=== PATIENT | male | born 1975 | race Caucasian/White ===

== ENCOUNTER 2020-07-22 13:10 | Emergency (ER) | payer OTHER, SELFPAY ==
[~2020-07-22] VITALS: Ht 160 cm; Wt 75.6 kg
[~2020-07-22 13:10] MED LIST: BACIPOW8 TOP; IBUP200C25 PO; KEFL500C17 PO; PERCOCET PO
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
[2020-07-22] MEDS ORDERED: NORC1TAB7 PO (14:27)
[2020-07-22] MEDS ORDERED: CLEO300C2 PO (14:27)
[2020-07-22 14:33] VITALS: BP 150/92
== END 2020-07-22 14:34 | disposition home or self-care (01) ==
LOC: M ED 13:10
DX: S02.652A Fracture of angle of left mandible, initial encounter for closed fracture (principal); S02.601A Fracture of unspecified part of body of right mandible, initial encounter for closed fracture; Y04.0XXA Assault by unarmed brawl or fight, initial encounter; Y92.9 Unspecified place or not applicable; F10.129 Alcohol abuse with intoxication, unspecified; K02.9 Dental caries, unspecified

== ENCOUNTER 2021-05-09 19:36 | Emergency (ER) | payer OTHER ==
[~2021-05-09] VITALS: Ht 160 cm; Wt 72.7 kg
[~2021-05-09 19:36] MED LIST changes: +CLEO300C2 PO; +NORC1TAB7 PO
[2021-05-09] MEDS ORDERED: BOOSTRIX/ADACEL VACCINE (DIPHTH/PERTUSS/ACELL/TETANUS) 0.5ML SYR IM ONE (20:10)
[2021-05-09 20:20] LABS: BASO # 0.1 10^3/uL (0.0-0.2); BASO % 0.9 % (0.0-1.0); EOS # 0.2 10^3/uL (0.0-0.5); EOS % 3.1 % (0.0-3.0); HEMATOCRIT 39.3 % (42.0-52.0); LYMPH # 1.9 10^3/uL (1.5-5.0); LYMPH % 27.8 % (24.0-44.0); MEAN CORPUSCULAR HEMOGLOBIN 27.7 pg (27.0-33.0); MEAN CORPUSCULAR HGB CONC 33.1 g/dl (32.0-36.5); MEAN CORPUSCULAR VOLUME 83.6 fl (80.0-96.0); MONO # 0.7 10^3/uL (0.0-0.8); MONO % 9.6 % (2.0-8.0); NEUTROPHILS # 3.9 10^3/uL (1.5-8.5); NEUTROPHILS % 58.3 % (36.0-66.0); PLATELET COUNT, AUTOMATED 270 10^3/uL (150-450); WHITE BLOOD COUNT 6.8 10^3/uL (4.0-10.0)
[2021-05-09 20:32] LABS: INR 1.01; PROTHROMBIN TIME 13.5 SECONDS (12.5-14.3)
[2021-05-09 20:33] LABS: PARTIAL THROMBOPLASTIN TIME 30.3 SECONDS (24.2-38.5)
[2021-05-09 20:39] LABS: ALBUMIN 3.9 GM/DL (3.2-5.2); ALT/SGPT 27 U/L (12-78); BILIRUBIN,DIRECT < 0.1 MG/DL (0.0-0.2); BILIRUBIN,TOTAL 0.3 MG/DL (0.2-1.0); BLOOD UREA NITROGEN 11 MG/DL (7-18); CARBON DIOXIDE LEVEL 27 MEQ/L (21-32); CHLORIDE LEVEL 108 MEQ/L (98-107); CREATININE FOR GFR 0.94 MG/DL (0.70-1.30); GLOMERULAR FILTRATION RATE > 60.0 (>60); GLUCOSE, FASTING 98 MG/DL (70-100); POTASSIUM SERUM 4.3 MEQ/L (3.5-5.1); SODIUM LEVEL 140 MEQ/L (136-145)
[2021-05-09] MEDS ORDERED: ISOVUE-370 76% 100ML VIAL As Ordered ONE (20:47)
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
[2021-05-09 23:50] VITALS: BP 129/70
== END 2021-05-09 23:51 | disposition home or self-care (01) ==
LOC: M ED 19:36
DX: S70.11XA Contusion of right thigh, initial encounter (principal); S00.81XA Abrasion of other part of head, initial encounter; V48.6XXA Car passenger injured in noncollision transport accident in traffic accident, initial encounter; M50.30 Other cervical disc degeneration, unspecified cervical region; I10 Essential (primary) hypertension; Z86.718 Personal history of other venous thrombosis and embolism; F12.10 Cannabis abuse, uncomplicated; Z87.891 Personal history of nicotine dependence
CPT/HCPCS: 70450; 71260; 72125; 73706; 74177; 80048; 80076; 85025; 85610; 85730; 90471; 90715; 93041; 94760; 99284; Q9967